=== PATIENT | male | born 1960 | race Caucasian/White ===

== ENCOUNTER 2017-10-05 10:23 | Emergency (ER) | payer OTHER ==
[~2017-10-05] VITALS: Ht 190.5 cm; Wt 86.2 kg
[2017-10-05] MEDS ORDERED: TRAZODONE HCL100 MG PO ×2 (10:55→11:19)
[2017-10-05] MEDS ORDERED: BENZTROPINE MESY2 MG PO ×2 (10:56→11:19)
[2017-10-05] MEDS ORDERED: RISPERIDONE1 MG PO ×2 (10:57→11:19)
[2017-10-05] MEDS ORDERED: RISPERIDONE4 MG PO ×2 (10:57→11:19)
[2017-10-05] MEDS ORDERED: ZOLOFT100 MG PO ×2 (10:58→11:19)
== END 2017-10-05 11:38 | disposition home or self-care (01) ==
LOC: ED 10:23
DX: Z76.0 Encounter for issue of repeat prescription (principal); F17.200 Nicotine dependence, unspecified, uncomplicated; Z88.6 Allergy status to analgesic agent
CPT/HCPCS: 99283

== ENCOUNTER 2017-11-11 10:44 | Emergency (ER) | payer OTHER ==
[~2017-11-11] VITALS: Ht 190.5 cm; Wt 86.2 kg
[~2017-11-11 10:44] MED LIST: BENZTROPINE MESY2 MG PO; RISPERIDONE1 MG PO; RISPERIDONE4 MG PO; TRAZODONE HCL100 MG PO; ZOLOFT100 MG PO
[2017-11-11] MEDS ORDERED: ZOLOFT100 MG PO (12:03)
== END 2017-11-11 12:15 | disposition home or self-care (01) ==
LOC: ED 10:44
DX: Z76.0 Encounter for issue of repeat prescription (principal); I10 Essential (primary) hypertension; F17.200 Nicotine dependence, unspecified, uncomplicated; Z88.6 Allergy status to analgesic agent; Z79.899 Other long term (current) drug therapy
CPT/HCPCS: 99281

== ENCOUNTER 2018-02-20 14:29 | Emergency (ER) | payer OTHER ==
[~2018-02-20] VITALS: Ht 190.5 cm; Wt 86.2 kg
[2018-02-20] MEDS ORDERED: NEURONTIN300 MG PO (14:59)
[2018-02-20] MEDS ORDERED: VENTOLIN HFA18 GM INH ×2 (15:00→15:45)
[2018-02-20] MEDS ORDERED: FLOVENT HFA12 G1 INH (15:01)
[2018-02-20] MEDS ORDERED: LEVAQUIN500 MG PO (15:45)
[2018-02-20] MEDS ORDERED: DELTASONE20 MG PO (15:45)
== END 2018-02-20 16:20 | disposition home or self-care (01) ==
LOC: ED 14:29
DX: J40 Bronchitis, not specified as acute or chronic (principal); J32.9 Chronic sinusitis, unspecified; I10 Essential (primary) hypertension; F32.9 Major depressive disorder, single episode, unspecified; F17.200 Nicotine dependence, unspecified, uncomplicated; Z88.8 Allergy status to other drugs, medicaments and biological substances; Z79.899 Other long term (current) drug therapy
CPT/HCPCS: 71045; 94640; 99284; J7512

== ENCOUNTER 2019-12-26 13:28 | Emergency (ER) | payer OTHER ==
[~2019-12-26] VITALS: Ht 190.5 cm; Wt 110.2 kg
[~2019-12-26 13:28] MED LIST changes: +DELTASONE20 MG PO; +FLOVENT HFA12 G1 INH; +LEVAQUIN500 MG PO; +NEURONTIN300 MG PO; +VENTOLIN HFA18 GM INH
--- OUTSIDE RECORDS SUMMARY | 2019-12-26 13:30 | XMS ---
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 Guidelines Source: [employer] [facility] [place] Guidelines Date: 10/10/2019 Care Coordination: Member is currently enrolled in Mental Health Services through [employer]. If services are needed through [employer] please call: Myron [phone] [place]; [phone] Crisis [phone] E.DSayda VISIT COUNT (12 MO.) 1 [facility] TOTAL 1 NOTE: Visits indicate total known visits. ED/UCC VISIT TRACKING (12 MO.) 12/26/2019 13:[address] [facility] [place] TYPE: Emergency COMPLAINT: - BACK PAIN INPATIENT VISIT TRACKING (12 MO.) No inpatient visits to display in this time frame [email or web address]
[2019-12-26] MEDS ORDERED: BUSPIRONE HCL5 MG PO (13:53)
[2019-12-26] MEDS ORDERED: CLARITIN10 M2 PO (13:53)
[2019-12-26] MEDS ORDERED: GABAPENTIN100 MG PO (13:58)
[2019-12-26] MEDS ORDERED: PREDNISONE20 MG PO (13:58)
[2019-12-26] MEDS ORDERED: LIDODERM1 EACH TD (13:58)
== END 2019-12-26 14:36 | disposition home or self-care (01) ==
LOC: ED 13:28
DX: M54.5 Low back pain (principal); I10 Essential (primary) hypertension; F32.9 Major depressive disorder, single episode, unspecified; F20.0 Paranoid schizophrenia; F17.200 Nicotine dependence, unspecified, uncomplicated; Z88.6 Allergy status to analgesic agent; Z79.899 Other long term (current) drug therapy
CPT/HCPCS: 96372; 99283; J1885

== ENCOUNTER 2019-12-31 18:57 | Emergency (ER) | payer OTHER ==
[~2019-12-31] VITALS: Ht 190.5 cm; Wt 110.2 kg
[~2019-12-31 18:57] MED LIST changes: +BUSPIRONE HCL5 MG PO; +CLARITIN10 M2 PO; +GABAPENTIN100 MG PO; +LIDODERM1 EACH TD; +PREDNISONE20 MG PO
--- OUTSIDE RECORDS SUMMARY | 2019-12-31 19:00 | XMS ---
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 Guidelines Source: [employer] [facility] [place] Guidelines Date: 10/10/2019 Care Coordination: Member is currently enrolled in Mental Health Services through [address]. If services are needed through [employer] please call: Myron [phone] [place]/[facility]; [phone] [facility] [phone] E.DSayda VISIT COUNT (12 MO.) 2 [facility]. TOTAL 2 NOTE: Visits indicate total known visits. ED/UCC VISIT TRACKING (12 MO.) 12/31/2019 18:57 [facility] [place] TYPE: Emergency COMPLAINT: - BACK PAIN 12/26/2019 13:29 [facility] [place] TYPE: Emergency COMPLAINT: - BACK PAIN DIAGNOSES: - Nicotine dependence, unspecified, uncomplicated - Allergy status to analgesic agent status - Other care home (current) drug therapy - Paranoid schizophrenia - Low back pain - Essential (primary) hypertension - Major depressive disorder, single episode, unspecified INPATIENT VISIT TRACKING (12 MO.) No inpatient visits to display in this time frame [email or web address]: [id number]
[2019-12-31] MEDS ORDERED: DICLOFENAC SODI75 MG PO (20:15)
--- NOTE | 2020-01-01 14:14 | EKG ---
[facility] [address] [place], [place] [address] Signed Normal sinus rhythm Normal ECG No previous ECGs available Confirmed by ODILON TREADWELL DO ([id number]) on 01/01/2020 2:13:58 PM Electronically Signed By: ODILON TREADWELL DO 01/01/20 1414 PATIENT NAME: ANSHULMARIAH FERREIRA Electrocardiogram DATE OF : 58 PHYSICIAN: ODILON TREADWELL DO REPORT #: [id number] REPORT IS CONFIDENTIAL AND NOT TO BE RELEASED WITHOUT AUTHORIZATION
== END 2019-12-31 20:35 | disposition home or self-care (01) ==
LOC: ED 18:57
DX: M54.5 Low back pain (principal); R55 Syncope and collapse; I10 Essential (primary) hypertension; F32.9 Major depressive disorder, single episode, unspecified; F17.200 Nicotine dependence, unspecified, uncomplicated; F20.0 Paranoid schizophrenia; Z88.6 Allergy status to analgesic agent; Z79.899 Other long term (current) drug therapy
CPT/HCPCS: 80053; 81001; 85025; 96361; 96374; 99284-25; G0480; J1885; J7030; J7121

== ENCOUNTER 2020-06-01 09:22 | Observation (INO) | payer OTHER ==
[~2020-06-01] VITALS: Ht 190.5 cm; Wt 87.4 kg
[~2020-06-01 09:22] MED LIST changes: -CLARITIN10 M2 PO; +CLARITIN10 MG PO; +DICLOFENAC SODI75 MG PO
--- OUTSIDE RECORDS SUMMARY | 2020-06-01 09:24 | XMS ---
PreManage Notification: MARIAH KUMAR Security Slip Laster Events No recent Security Events currently on file CRITERIA MET - [facility] - Has Care Guidelines CARE PROVIDERS There are no care providers on record at this time. Guidelines Source: [employer] [facility] [place] Guidelines Date: 10/10/2019 Care Coordination: Member is currently enrolled in Mental Health Services through [employer]. If services are needed through [employer] please call: Myron [phone] [place]; [phone] Crisis [phone] E.D. VISIT COUNT (12 MO.) 3 [facility]. TOTAL 3 NOTE: Visits indicate total known visits. ED/UCC VISIT TRACKING (12 MO.) 06/01/2020 09:22 [facility] TYPE: Emergency COMPLAINT: - L MIDDLE FINGER INJURY 12/31/2019 18:57 [facility] [place] TYPE: Emergency COMPLAINT: - BACK PAIN DIAGNOSES: - Low back pain - Major depressive disorder, single episode, unspecified - Paranoid schizophrenia - Syncope and collapse - Essential (primary) hypertension - Other senior living (current) drug therapy - Allergy status to analgesic agent - Nicotine dependence, unspecified, uncomplicated 12/26/2019 13:29 [facility]ir[facility]ills[facility]da [place] TYPE: Emergency COMPLAINT: - BACK PAIN DIAGNOSES: - Nicotine dependence, unspecified, uncomplicated - Allergy status to analgesic agent - Other senior living (current) drug therapy - Paranoid schizophrenia - Low back pain - Essential (primary) hypertension - Major depressive disorder, single episode, unspecified INPATIENT VISIT TRACKING (12 MO.) No inpatient visits to display in this time frame [email or web address]
[2020-06-01] MEDS ORDERED: VITAMIN D21250 MCG PO (16:36)
--- NOTE | 2020-06-01 17:43 | NUR ---
PT ADMITTED FROM ED. PT ON 2L OXYMASK, LUNG SOUNDS COARSE WITH EXPIRATORY WHEEZE. PT WITH POOR PERSONAL HYGEINE. BOWEL TONES ACTIVE, DENIES NAUSEA. CMSINTACT. PT WITH LEFT 3RD FINGER SPLINTED, BRUISING AND SWELLING. SKIN GROSSLY INTACT. IV SALINE LOCKED. ADMISSION INTAKE COMPLETED. PT ASSISTED TO ORDER DINNER. PT DENIES OTHER NEEDS AT THIS TIME.
--- NOTE | 2020-06-01 19:05 | NUR ---
REPORT RECEIVED FROM MIGUEL GEORGE, PATIENT RESTING IN BED, ALERT AND ORIENTED, ON 2L 02. DINNER TRAY REMOVED, CALL LIGHT IN REACH, NO OTHER NEEDS AT THIS TIME. WILL CONT TO MONITOR
--- NOTE | 2020-06-01 21:19 | NUR ---
SCHEDULED MEDICATIONS ADMINISTERED, PRN TYLENOL ADMINISTERED FOR 4/10 GENERALIZED "SORENESS". PT ON 2L VIA OXYMASK, SPO2 RANGING FROM 89-92%. LUNGS DIM, HRR, BOWEL TONES ACTIVE. CMS INTACT. L FINGERS SPLINTED, BRUISING NOTED. PT REPORTS MINIMAL PAIN IN HAND/FINGERS. WATER REFRESHED, ORIENTED TO ROOM, CALL LIGHT IN REACH. WILL CONT TO MONITOR
--- NOTE | 2020-06-01 22:30 | NUR ---
ROUNDED ON PATIENT, RESTING IN BED WITH LIGHTS OFF, EYES CLOSED. BREATHING EVEN AND UNLABORED. ON 2L OXYMASK. TELE IN PLACE. NO APPARENT NEEDS AT THIS TIME.
--- NOTE | 2020-06-02 00:12 | NUR ---
PT SPO2 NOTED TO BE READING 85%, PT FOUND TO HAVE REMOVED OXYMASK WHILE SLEEPING. REPLACED, SPO2 READING 94%. PT REPORTS NO SOB. WILL CONTINUE TO MONITOR.
--- NOTE | 2020-06-02 01:35 | NUR ---
TELE LEADS ADJUSTED, VITALS TAKEN, VSS. PT OXYMASK CONTINUES TO SLIP WHILE SLEEPING, O2 RANGING FROM 85%-100%, EDUCATED PT REGARDING PLACEMENT OF MASK AND IMPORTANCE OF USE. VERBALIZES UNDERSTANDING. ASSESSMENT COMPLETE, PT REPORTS NO SOB, NO TIGHTNESS OR PAIN IN CHEST, LUNG SOUNDS DIM, HRR. COMPLIANT WITH CARE BUT STATES ANXIOUS TO "GET SOME SLEEP". CALL LIGHT IN REACH.
--- NOTE | 2020-06-02 03:47 | NUR ---
ROUNDED ON PATIENT, RESTING IN BED WITH EYES CLOSED AND LIGHTS OFF. OXYMASK IN PLACE, SPO2 97%, HR 73. NO APPARENT NEEDS AT THIS TIME, WILL CONTINUE TO MONITOR.
--- NOTE | 2020-06-02 05:43 | NUR ---
MEDICATIONS ADMINSTERED, VITALS AND I/O'S COMPLETE. PT DUE TO VOID, STATES "DOES NOT GO AT NIGHT", ENCOURAGED TO TRY, REFUSED AT THIS TIME. 93% ON 2L OXYMASK, STATES NO SOB. CALL LIGHT IN REACH.
--- NOTE | 2020-06-02 06:15 | NUR ---
BRAND MGR ROUNDING NOTE. PT UP TO BATHROOM AND BACK TO BED WITH SBA. TOLERATED WELL. SAO2 TO MID 80'S WHILE UP TO BR ON RA. PT RECOVERS TO 90S WHEN O2 REPLACED @ 2L. PT DENIES FURTHER NEEDS AT THIS TIME. CALL LIGHT IN [facility]. WHITE BOARD UPDATED.
--- NOTE | 2020-06-02 06:55 | NUR ---
HANDOFF REPORT RECEIVED FROM FORESTRY FIRE AID RN.
--- NOTE | 2020-06-02 09:25 | NUR ---
PT RESTGING IN BED. PT COMPLETED WITH BREAKFAST, EXCELLENT APPETITE. PT ON 2L NC, LUNG SOUNDS COARSE WITH EXPIRAOTRY HWEEZE, PT STATES BREATHING IS AT BASELINE BOWEL TONES ACTIVE. CMS INTACT, WIHTOUT EDEMA. PT WITH LEFT THIRD FINGER SPLINTED, SWELLING AND BRUISING UNCHANGED FROM YESTERDAY. PT REQUESTING TO SHOWER, GRANULATOR TO ASSIST. PT DENIES OTHER NEEDS AT THIS TIME.
--- NOTE | 2020-06-02 11:14 | NUR ---
PATIENT TOOK A SHOWER. CHANGED BED LINENS. HE ORDERED HIS OWN LUNCH.
[2020-06-02] MEDS ORDERED: BUPROPION XL150 MG PO (11:30)
[2020-06-02] MEDS ORDERED: ACETAMINOPHEN500 M1 PO (11:31)
[2020-06-02] MEDS ORDERED: RISPERIDONE4 MG PO (11:32)
[2020-06-02] MEDS ORDERED: ZOLOFT100 MG PO (11:33)
[2020-06-02] MEDS ORDERED: TRAZODONE HCL100 MG PO (11:33)
[2020-06-02] MEDS ORDERED: BENZTROPINE MESY2 MG PO (11:34)
[2020-06-02] MEDS ORDERED: GABAPENTIN300 MG PO (11:35)
--- NOTE | 2020-06-02 14:15 | NUR ---
PT CONSENTED TO FLU VACCINE ADMINISTRATION, GIVEN TO LEFT DELTOID. PT ENCOURAGED TO WALK IN ROOM AND INCREASE ACTIVITY TOLERATED. NO ACUTE CHANGES. PT DENIES OTHER NEEDS AT THIS TIME.
--- NOTE | 2020-06-02 17:33 | NUR ---
PT HAD UNEVENTFUL DAY. PT REMAINED ON 2L NC, LUNG SOUNDS COARSE WITH OCCASIONAL WHEEZE, SCHEDULED NEBS. PT TOLERATING DIET, GOOD APPETITE. PT INDEPENDENT IN ROOM, ENCOURAGE AMBULATION. IV SALINE LOCKED. VSS. VOIDING QS.
--- NOTE | 2020-06-02 19:04 | NUR ---
REPORT RECEIVED FROM MIGUEL GEORGE, PATIENT RESTING IN BED, ON TELE #4, SPO2 92%, NO APPARENT NEEDS AT THIS TIME, WILL CONTINUE TO MONITOR.
--- NOTE | 2020-06-02 19:19 | NUR ---
REPORT RECEIVED FROM JORGE GEORGE, ARIEL RIVERA AND LEI PHAN IN ROOM TO ASSIST WITH BED CHANGE, PT INCONTINENT. PT RESTING IN BED,IVF INFUSING WNL, PT STATES NO NEEDS AT THIS TIME, CALL LIGHT IN REACH.
--- NOTE | 2020-06-02 21:05 | NUR ---
SCHEDULED MEDICATIONS ADMINISTERED, ASSESSMENT COMPLETE, PT RESTING IN BED ON 2L O2, SPO2 94%, PT REPORTS NO SOB BUT HAS FREQUENT PRODUCTIVE COUGH. I.S. AT BEDSIDE. LUNG SOUNDS CLEAR AT THIS TIME POST NEB TX. PRN TYLENOL ADMINISTERED FOR GENERALIZED ACHE, BACK PAIN AND FINGER PAIN. SALINE LOCKED. VSS, A+O. CALL LIGHT IN REACH, WILL CONTINUE TO MONITOR.
--- NOTE | 2020-06-02 23:47 | NUR ---
ROUNDED ON PATIENT, RESTING IN BED WITH EYES CLOSED, LIGHTS OFF, BREATHING UNLABORED ON 2L NC, SPO2 95%. NO APPARENT NEEDS, WILL CONTINUE TO MONITOR
--- NOTE | 2020-06-03 01:30 | NUR ---
ROUNDED ON PATIENT, RESTING IN BED WITH EYES CLOSED, BREATHING EVEN AND UNLABORED. NO APPARENT NEEDS AT THIS TIME, WILL CONTINUE TO MONITOR.
--- NOTE | 2020-06-03 04:15 | NUR ---
ROUNDED ON PATIENT, RESTING IN BED WITH EYES CLOSED, BREATHING EVEN AND UNLABORED. NO APPARENT NEEDS, CALL LIGHT IN REACH.
--- NOTE | 2020-06-03 05:13 | NUR ---
MEDICATIONS ADMINISTERED, ASSESSMENT COMPLETE, VITALS AND I/O'S COMPLETE. VSS, A+O, SALINE LOCKED. ON 2L NC, PT STATES EXPERIENCING DRY NARES FROM O2, OTHERWISE NO PAIN, DISCOMFORT OR NEEDS. WATER REFRESHED, CALL LIGHT IN REACH.
--- NOTE | 2020-06-03 06:55 | NUR ---
HANDOFF REPORT RECEIVED FROM FOOD SERVICE ASSISTANT RN.
--- NOTE | 2020-06-03 07:35 | NUR ---
PT RESTING IN BED. PT ON 2L NC, LUNG SOUNDS COARSE WITH EXPIRATORY WHEEZE THROUGHOUT. PT DENIES NAUSEA, BOWEL TONES ACTIVE. PT WITH LEFT THIRD FINGER SPLINTED, BRUISING AND SWELLING UNCHANGED FROM YESTERDAY. CMS INTACT, WITHOUT LLE. PT INDEPENDENT IN ROOM, VOIDING QS. DISCUSSED PLAN OF CARE FOR THE DAY. PT DENIES OTHER NEEDS AT THIS TIME.
--- NOTE | 2020-06-03 13:56 | NUR ---
PHONE CALL TO [facility] TO SEE IF HIS LAST CASE-MANGER COULD HELP WITH THE DISCHARGE TO A SAFE PLACE. THIS IS DUE TO PT WILL BE NEEDING HOME O2 AND PT CURRENTLY LIVES IN A TRAVEL TRAILER AT THE [facility] ON [address].
--- NOTE | 2020-06-03 14:15 | NUR ---
PT RESTING IN BED. PT LUNG SOUNDS COARSE, LOOSE COUGH. IV SLAIEN LOCKED, FLUSHED, SOLUMEDROL GIVEN. PT WAITING FOR BROTHER TO ARRIVE WITH FRESH CLOTHES BEFORE SHOWERING. NO ACUTE CHANGES. PT DENIES OTHER NEEDS AT THIS TIME.
--- NOTE | 2020-06-03 18:06 | NUR ---
PT HAD UNEVENTFUL DAY. PT WEANED TO 2L NC, RECEIVED SCHEDULED NEBS. PT SHOWERED, INDEPENDENT IN ROOM. [employer] CONTACTED TO ASSIST WITH DISCHARGE PLANNING. LEFT HAND WITH 3RD FINGER SPLINTED, BRUSINING AND SWELLING. PT VOIDING QS.
--- NOTE | 2020-06-03 19:05 | NUR ---
REPORT RECEIVED FROM MIGUEL EGORGE. PATIENT SITTING UP IN BED WATCHING TV, 2L 02 NC, TELE IN PLACE, A+O, STATES NO NEEDS AT THIS TIME.
--- NOTE | 2020-06-03 20:58 | NUR ---
MEDICATIONS ADMINISTERED, PT RESTING IN BED WATCHING TV. SALINE LOCKED. 2L NC 02, TOLERATING WELL. PT REPORTS 4/10 PAIN, PRN TYLENOL ADMINISTERED. LUNGS COARSE IN BASES, PT REPORTS "BREATHING BETTER" AFTER NEB TX. WATER REFRESHED, NO OTHER NEEDS AT THIS TIME.
--- NOTE | 2020-06-03 23:15 | NUR ---
ROUNDED ON PATIENT, RESTING IN BED WATCHING TV. STATES NO NEEDS AT THIS TIME, CALL LIGHT IN REACH.
--- NOTE | 2020-06-04 03:00 | NUR ---
ROUNDED ON PATIENT, RESTING IN BED WITH EYES CLOSED, 2L NC IN PLACE, TOLERATING WELL SPO2 94%. BREATHING EVEN AND UNLABORED. CALL LIGHT IN REACH, WILL CONTINUE TO MONITOR
--- NOTE | 2020-06-04 05:35 | NUR ---
MEDICATIONS ADMINISTERED, PT UP TO BR TO VOID. WATER REFRESHED, CALL LIGHT IN REACH, NO OTHER NEEDS AT THIS TIME.
--- NOTE | 2020-06-04 07:49 | NUR ---
REPORT RECEIVED. PT IN BED IWTH EYES CLOSED. TELE#[address] HR 71 SPO2 94% ON 2L NC. RESPIRATIONS EQUAL AND NONLABORED. CALL LIGHT IN REACH.
--- NOTE | 2020-06-04 10:01 | NUR ---
ASSESSMENT COMPLETED. PT ON 2L NC, LUNGS COARSE THROUGHOUT. PT DENIES PAIN AT THIS TIME. SITTING UP IN BED ALERT AND ORIENTED. DENIES SOB. CALL LIGHT IN REACH
--- NOTE | 2020-06-04 11:20 | NUR ---
SPOKE WITH [facility]. PATIENT HAS BEEN DISCHARGED FROM THEIR ACT TEAM. HIS LAST MEDICATION MANAGEMENT APPOINTMENT WAS IN APRIL. HE IS DISCHARGED FROM COUNSELING FOR NO SHOWING FOR MULTIPLE APPOINTMENTS. PATIENT CAN CALL AND SET UP NEW APPOINTMENTS IF HE WISHES. THEY DO NOT HAVE ANY NOTES FROM ANYONE ON THE WEEKEND IN HIS CHART. STAFF UPDATED.
--- NOTE | 2020-06-04 12:00 | NUR ---
PT SITTING UP FOR LUNCH. DENEIS PAIN AT THIS TIME. CALL LIGHT IN REACH. 2L NC IN PLACE.
--- NOTE | 2020-06-04 13:07 | NUR ---
PT O2 SAT 94 ON 1LNC
--- NOTE | 2020-06-04 14:45 | NUR ---
RESPITORY THERAPY IN TO QUALIFY FOR HOME O2.
--- NOTE | 2020-06-04 16:17 | NUR ---
RT IN ROOM DOING TREATMENT. CANNOT ENTER AT THIS TIME.
[2020-06-04] MEDS ORDERED: FLOVENT HFA12 GM INH (16:43)
--- NOTE | 2020-06-04 19:15 | NUR ---
SHIFT REPORT RECEIVED FROM DAYSHIFT ARIEL CHAU AT BEDSIDE. pt AWAKE AND RESTING IN BED, 2LNC IN PLACE. REPORTS FEELING SWEATY, TEMP TAKEN BY ARIEL CHAU. RESULT 98.4. NO NEEDS, CALL LIGHT IN REACH.
--- NOTE | 2020-06-04 20:15 | NUR ---
ASSESSMENT COMPLETE, SCHEDULED MEDS GIVEN (SEE EMAR). pt REPORTS TOLERABLE PAIN AT THIS TIME, DENIES NAUSEA. VSS, TELE#[address], SINUS RHYTHM. pt DENIES SOB AND CHEST PAIN. 2LNC IN PLACE. pt DENIES FURTHER NEEDS, CALL LIGHT IN REACH.
--- NOTE | 2020-06-04 22:45 | NUR ---
SCHEDULED SOLU-MEDROL GIVEN (SEE EMAR). IV SITE WNL. URINAL ALSO EMPTIED, 900MLS OUTPUT. NO ADDITIONAL NEEDS, CALL LIGHT IN REACH.
--- NOTE | 2020-06-05 00:41 | NUR ---
pt RESTING IN BED WITH EYES CLOSED, RR EVEN AND UNLABORED. TELE#[address], 2LNC IN PLACE. SPO2 100%, HR 60'S. NO DISTRESS NOTED, CALL LIGHT IN REACH.
--- NOTE | 2020-06-05 02:48 | NUR ---
pt RESTING QUIETLY IN BED WITH EYES CLOSED, RR EVEN AND UNLABORED. 2LNC IN PLACE, O2 SAT 96%. TELE6, SINUS RHYTHM WITH HR IN THE 60'S. CALL LIGHT IN REACH.
--- NOTE | 2020-06-05 03:49 | NUR ---
pt RESTING QUIETLY IN BED WITH EYES CLOSED, RESPIRATIONS EVEN AND UNLABORED. O2 SAT WNL. NO DISTRESS OR SIGNS OF PAIN NOTED. CALL LIGHT IN REACH.
--- NOTE | 2020-06-05 06:30 | NUR ---
vs and i&o's complete, pt remains on 2lnc. exp. wheezes noted, pt denies sob. reports tolerable 4/10 pain in left hand, denies need for pain medication. denies nausea. iv site wnl. pt independent in the room. call light in reach.
--- NOTE | 2020-06-05 06:47 | NUR ---
WRITTEN EDUCATION ALSO PROVIDED ON CONSTIPATION AT THIS TIME.
--- NOTE | 2020-06-05 07:20 | NUR ---
REPORT ERCEIVED. PT IN BED WITH EYES CLOSED. RESPIRAITONS EQUAL AND NONLABORED. TELE#[address] 99% ON 2L NC. TITRATED TO RA. SPO2 NOW 95%. HR 64. CALL LIGHT IN REACH.
--- NOTE | 2020-06-05 08:55 | NUR ---
TITRATED BACK TO 2L NC D/T PT AT 89% AT REST ON RA
--- NOTE | 2020-06-05 09:30 | NUR ---
Spoke with Vasyl. He plans on dc today. Qualified for 02 awaiting notes to send to [facility] for o2 set up. Pt states concern to use 02 in his RV as he was told he could not dc to home (RV) as he has propane. I let him know this is absolutely not correct. Many patients live in RVs, Trailers, and house with propane or natural gas. Understanding stated.
--- NOTE | 2020-06-05 09:44 | NUR ---
ASSESSMENT COMPLETED. LUNGS COARSE. PT ATE 100% OF BREAKFAST. REPORTS MINIMAL PAIN IN LEFT HAND AND LOWER BACK DENYING NEED FOR MEDICAITONS. 2L NC IN PLACE. SPO2 AT 94%. DENEIS NEEDS. CALL LIGHT IN REACH.
[2020-06-05] MEDS ORDERED: LORATADINE10 MG PO (09:50)
[2020-06-05] MEDS ORDERED: ZOLOFT100 MG PO (09:52)
[2020-06-05] MEDS ORDERED: TRAZODONE HCL100 MG PO (09:52)
[2020-06-05] MEDS ORDERED: BUPROPION XL150 MG PO (09:52)
[2020-06-05] MEDS ORDERED: RISPERIDONE0.25 MG PO (09:53)
[2020-06-05] MEDS ORDERED: RISPERIDONE2 MG PO (09:53)
[2020-06-05] MEDS ORDERED: BENZTROPINE MESY2 MG PO (09:55)
[2020-06-05] MEDS ORDERED: PREDNISONE10 MG PO (09:56)
[2020-06-05] MEDS ORDERED: ATROVENT HFA12.9 GM INH (09:57)
--- NOTE | 2020-06-05 10:38 | NUR ---
ROUNDED ON PT. DC'D IV FOR DISCHARGE. TELE DC'D. PT UP GETTING DRESSED INDEPENDENTLY NOW.
--- NOTE | 2020-06-05 11:44 | NUR ---
NOtes, 02 qualifier, face sheet, faxed to [facility]. Updated pt may have concerns for 02 in RV. Spoke with Mandeep and she will reassure pt.
--- NOTE | 2020-06-05 12:02 | NUR ---
DISCHARGE INSTRUCTIONS PROVIDED. IV DC'D AND WNL.
--- NOTE | 2020-06-05 14:00 | NUR ---
ROUNDED ON PT TO UPDATE ON OXYGEN SITUATION. PT REPORTING HE WILL BE LEAVING AT 4 WITH OR WITHOUR OXYGEN HE HAS TO WALK HIS DOG BEFORE DRARK. ENCOURAGED PT TO STAY AND UPDATED FLAQUITO IN CAS[facility]EMENT. FLAQUITO WORKING ON GETTING OXYGEN APPROVED SOON POSSIBLE.
--- NOTE | 2020-06-05 14:00 | NUR ---
Call from [facility], they are awaiting auth from Medicaid. Pt may need to pay some money upfront. Room number given for [facility] to call into the room if needed.
--- NOTE | 2020-06-05 14:50 | NUR ---
Notified pt is threatening to leave at 4 with or without 02. In and spoke with pt, notified [facility] is attempting get authoriziation for payment for his 02. Notified this is not a fast process. Asked if he would be willing to stay as M is trying to get auth at this time. Pt agrees to stay. He is very concerned about his little dog and wanting to go home. I suggested a girlfriend bring the dog in for a visit.
--- NOTE | 2020-06-05 16:40 | NUR ---
Notified by [facility] they have made numerous attempts to contact [facility] for auth of oxygen. They last call, they were notified the office had closed. I will update pt and request he spend the nigth as it is dangerous for him to go home without 02. Spoke with pt and he is willing to stay tonight. Rn notified.
--- NOTE | 2020-06-05 18:19 | NUR ---
ROUNDED ON PT. ATE 100% OF DINNER. PT MISSED 2 BREATHING TREAMENTS D/T PENDING DISCHARGE. REQUESTED RESPITORY THERPY FOR NEB TREATMENT.
--- NOTE | 2020-06-05 18:29 | NUR ---
PATIENT IN BED WATCHING TV. RT IN ROOM NOW TO DO BREATHING TREATMENT. CALL LIGHT IN REACH. NO FURTHER NEEDS AT THIS TIME.
--- NOTE | 2020-06-05 19:20 | NUR ---
SHIFT REPORT RECEIVED FROM DAYSHIFT ARIEL CHAU AT THIS TIME, pt RESTING IN BED. 2LNC IN PLACE, RR EVEN AND UNLABORED. CALL LIGHT IN REACH.
--- NOTE | 2020-06-05 19:25 | NUR ---
pt BACK TO BED FROM BATHROOM. LARGE BM NOTED, SPRAYED WALL AND FLOOR. STAGE 2 PRESSURE SORES NOTED BILATERALLY INTERNAL GLUTEAL CLEFTS. CONSENT FOR PHOTOS CONFIRMED AND PICTURES PLACED IN CHART. AREA CLEANED AND ALLEVYN PLACED. DR. DOMINIQUE SHOWN IMAGES AND DISCUSSED PLAN TO TURN PATIENT Q2H, ALLEVYN IN PLACE. NO NEW ORDERS.
--- NOTE | 2020-06-05 19:33 | NUR ---
DR BERGERON CALLED TO VERIFY NEED FOR SOLU-MED PT DOES NOT HAVE IV ACCESS. ORDER TO DC SOLU-MED AND ORDER PREDNISONE 40MG PO ONCE AT 0900 TOMORROW. READ BACK TO VERIFY.
--- NOTE | 2020-06-05 22:00 | NUR ---
ASSESSMENT COMPLETE, SCHEDULED MEDS GIVEN (SEE EMAR). 0.5MG RISPERIDONE UNAVAILABLE. pt WAS PLANNING ON BEING DISCHARGED TODAY. DISCUSSED WITH JENNIFER FROM TELEPHARM[facility]Y, PER JENNIFER, OKAY TO CUT 2MG RISPERIDONE TAB INTO QUARTERS. VSS, pt ON 2LNC. DENIES SOB AND CHEST PAIN. DENIES NAUSEA, BUT REPORTS ABD PAIN D/T CONSTIPATION. DISCUSSED WITH PERL DEVELOPERDEEPTHI ROTHMAN FOR MAG CITRATE PLACED. DISCUSSED INTERACTIONS WITH JENNIFER FROM TELEPHARM[facility]Y, PER JENNIFER, GIVE 1 HOUR BEFORE OR 2 HOURS AFTER LEVAQUIN AND GABAPENTIN TO MAXIMIZE ABSORPTION. N ISSUES WITH MEDS, CALL LIGHT IN REACH.
--- NOTE | 2020-06-06 00:05 | NUR ---
SCHEDULED MAG CITRATE GIVEN IN 8 OUNCES OF WATER, TO HELP WITH ABD PAIN R/T CONSTIPATION. WILL MONITOR, NO ADDITIONAL NEEDS, CALL LIGHT IN REACH.
--- NOTE | 2020-06-06 01:49 | NUR ---
pt RESTING IN BED WITH EYES CLOSED, RR EVEN AND UNLABORED. 2LNC REMAIN IN PLACE. URINAL EMPTIED AT THIS TIME, 875MLS STRAW COLORED URINE NOTED. CALL LIGHT IN REACH.
--- NOTE | 2020-06-06 02:28 | NUR ---
DR BERGERON AT [facility] UPDATED ON ADDITION TO NIO MAG CITRATE. NO NEW ORDERS. PER DR BERGERON, THIS IS A CHRONIC ISSUE FOR pt AND pt DOES NOT HAVE TO HAVE A BM TO BE DISCHARGED. pt IS STILL PLANNED TO BE DISCHARGED TODAY ON DAYSHIFT.
--- NOTE | 2020-06-06 03:00 | NUR ---
pt RESTING IN BED WITH EYES CLOSED, RR REMAINS EVEN AND UNLABORED. NO DISTRESS NOTED. 2LNC REMAIN IN PLACE. CALL LIGHT IN REACH.
--- NOTE | 2020-06-06 06:31 | NUR ---
ASSESSMENT COMPLETE, NO NEW CHANGES OR CONCERNS. pt RESTING IN BED AND AWAKE. pt DID NOT DRINK ANY OF THE MAG CITRATE, MAG CITRATE REMOVED AT 0530 D/T SCHEDULED LEVAQUIN (SEE EMAR). SCHEDULED PO ABX GIVEN. CMS INTACT, SPLINT TO LEFT FINGERS REMAINS IN PLACE. CAP REFILL WNL, STRONG BILATERAL PEDAL AND RADIAL PULSES NOTED. FRESH WATER AT BEDSIDE. NO FURTHER NEEDS, CALL LIGHT IN REACH.
--- NOTE | 2020-06-06 09:01 | NUR ---
Patient resting in bed, a&ox4. Patient has no distress at this time, respirations are even and non labored. Patient is currently on 2L oxygen per nc. Patient reports he feels ready for discharge. No needs at this time.
--- NOTE | 2020-06-06 09:43 | NUR ---
SPOKE WITH TOMMY FROM [facility] TO CHECK IF THEY RECEIVED AUTH FOR HOME OXYGEN YET. DISCUSSED WE NEED TO DISCHARGE TODAY. SHE STATES SHE IS JUST GETTTING READY TO CALL THEM. ASKED IF SHE COULD LET US KNOW SOON POSSIBLE WHEN CLEAR TO GO.
--- NOTE | 2020-06-06 10:30 | NUR ---
Notified by [facility] auth for o2 has been received. [employer] will pay 100%. Pt will go home with a portable 02 and will need to call them when home. They will deliver 02. Updated pt and gave them [facility] phone number. Also reminded he must see his pcp and requalify for 02 before 30 days. He will see Kingsley Brown in 2 weeks.
[2020-06-06] MEDS ORDERED: NICOTINE GUM2 MG MM (10:34)
--- NOTE | 2020-06-06 11:20 | NUR ---
Nicorette gum x1 provided prior to discharge.
--- NOTE | 2020-06-06 13:48 | NUR ---
PT ALERT, LAYING IN BED WATCHING TV. HAD FRIENDLY VISIT WITH PT, SEEMED TO BE ENGAGED IN CONVERSATION. HOPES TO DC LATER TODAY. WILL GO ON O2, NEEDS PORTABLE O2 TO ACCOMODATE HIS WORK AND LIFESTYLE. PT HAS GLOVE ON HAND-SAID HE HAS BROKEN FINGER THAT IS SUPPOSED TO GET "FIXED". PT FEELS WELL CARED FOR. GAVE BLESSING WILL CONTINUE TO FOLLOW
--- NOTE | 2020-06-07 14:07 | NUR ---
Rx for Nicotine gum 2mg 1 q 1 hr as needed for cigarette craving called to [facility]. [phone]. Spoke with pharmacist Jennifer.
== END 2020-06-06 11:25 | disposition home or self-care (01) ==
LOC: ED 09:22 → MS 09:23
PROVIDERS: ADMIT Internal Medicine; ATTEND Internal Medicine
DX: S62.613A Displaced fracture of proximal phalanx of left middle finger, initial encounter for closed fracture (principal); J44.1 Chronic obstructive pulmonary disease with (acute) exacerbation; R09.02 Hypoxemia; I10 Essential (primary) hypertension; G89.29 Other chronic pain; M54.9 Dorsalgia, unspecified; F32.9 Major depressive disorder, single episode, unspecified; F20.0 Paranoid schizophrenia; F17.210 Nicotine dependence, cigarettes, uncomplicated; W01.0XXA Fall on same level from slipping, tripping and stumbling without subsequent striking against object, initial encounter; Y92.028 Other place in mobile home as the place of occurrence of the external cause; Z88.6 Allergy status to analgesic agent; Z99.81 Dependence on supplemental oxygen; Z79.51 Long term (current) use of inhaled steroids; Z20.822 Contact with and (suspected) exposure to COVID-19
CPT/HCPCS: 36415; 71045; 71260; 73110; 73130; 80048; 80053; 83735; 84484; 85025; 85379; 90686; 94640; 94760; 94761; 96372; 96375; 96376; 99285-25; 99406; C9803; G0008; G0378; J1100; J1885; J2920; J7512; Q9967; U0003

== ENCOUNTER 2021-09-22 10:49 | Inpatient (IN) | payer OTHER ==
[~2021-09-22] VITALS: Ht 190.5 cm; Wt 94.0 kg
[~2021-09-22 10:49] MED LIST changes: +ACETAMINOPHEN500 M1 PO; +ATROVENT HFA12.9 GM INH; +BUPROPION XL150 MG PO; +FLOVENT HFA12 GM INH; +GABAPENTIN300 MG PO; +LORATADINE10 MG PO; +NICOTINE GUM2 MG MM; +PREDNISONE10 MG PO; +RISPERIDONE0.25 MG PO; +RISPERIDONE2 MG PO; +VITAMIN D21250 MCG PO
--- OUTSIDE RECORDS SUMMARY | 2021-09-22 10:52 | XMS ---
PreManage Notification: MARIAH KUMAR Security Slurry Worker Events No recent Security Events currently on file CRITERIA MET - PDMP CARE PROVIDERS JENN SAMANIEGO Physician Events Intern 06/05/2020-Current PHONE: [phone] Care Guidelines exist for the following facilities: [facility] ( 10/10/2019 ) Johnny VISIT COUNT (12 MO.) 1 MARIANELA Pagan TOTAL 1 NOTE: Visits indicate total known visits. ED/UCC VISIT TRACKING (12 MO.) 09/22/2021 10:50 MARIANELA [facility] [place] TYPE: Emergency COMPLAINT: - FLU SYMPTOMS INPATIENT VISIT TRACKING (12 MO.) No inpatient visits to display in this time frame [email or web address]
[2021-09-23] MEDS ORDERED: VENTOLIN HFA18 GM INH (10:18)
[2021-09-23] MEDS ORDERED: IPRAT-ALBUT 0.5-3 ML INH (10:19)
[2021-09-23] MEDS ORDERED: STOOL SOFTENER1 EACH PO (10:20)
[2021-09-23] MEDS ORDERED: TRELEGY ELLIPT1 EAC1 INH (10:21)
[2021-09-23] MEDS ORDERED: BENZTROPINE MESY1 MG PO (10:25)
[2021-09-23] MEDS ORDERED: MONTELUKAST SOD10 MG PO (10:26)
[2021-09-23] MEDS ORDERED: VITAMIN D21250 MCG PO (10:27)
[2021-09-23] MEDS ORDERED: ARIPIPRAZOLE10 MG PO (10:28)
[2021-09-23] MEDS ORDERED: FLUTICASONE PRO16 GM NAS (10:30)
[2021-09-23] MEDS ORDERED: DULOXETINE HCL30 MG PO (10:30)
[2021-09-23] MEDS ORDERED: RISPERIDONE4 MG PO (10:45)
[2021-09-23] MEDS ORDERED: TRAZODONE HCL100 MG PO (10:45)
[2021-09-24] MEDS ORDERED: DOXYCYCLINE HY100 MG PO (13:32)
[2021-09-24] MEDS ORDERED: PREDNISONE50 MG PO (13:34)
== END 2021-09-24 14:55 | disposition home or self-care (01) | DRG 189 ==
LOC: ED 10:49 → MS 15:54
PROVIDERS: ADMIT Internal Medicine; ATTEND Internal Medicine
DX: J96.01 Acute respiratory failure with hypoxia (principal); J44.1 Chronic obstructive pulmonary disease with (acute) exacerbation; F20.0 Paranoid schizophrenia; Z20.822 Contact with and (suspected) exposure to COVID-19; M54.2 Cervicalgia; G89.4 Chronic pain syndrome; I10 Essential (primary) hypertension; F32.A Depression, unspecified; M54.9 Dorsalgia, unspecified; F17.210 Nicotine dependence, cigarettes, uncomplicated; Z90.49 Acquired absence of other specified parts of digestive tract; Z98.890 Other specified postprocedural states; Z88.6 Allergy status to analgesic agent; Z79.899 Other long term (current) drug therapy
CPT/HCPCS: 36415; 71045; 80048; 82803; 85025; 94640; 94667; 94668; 94760; 94761; 96374; 99285-25; A9270; C9803; J1650; J2930; U0003

== ENCOUNTER 2021-11-29 10:06 | Emergency (ER) | payer OTHER ==
[~2021-11-29] VITALS: Ht 190.5 cm; Wt 93.9 kg
[~2021-11-29 10:06] MED LIST changes: +ARIPIPRAZOLE10 MG PO; +BENZTROPINE MESY1 MG PO; +DOXYCYCLINE HY100 MG PO; +DULOXETINE HCL30 MG PO; +FLUTICASONE PRO16 GM NAS; +IPRAT-ALBUT 0.5-3 ML INH; +MONTELUKAST SOD10 MG PO; +PREDNISONE50 MG PO; +STOOL SOFTENER1 EACH PO; +TRELEGY ELLIPT1 EAC1 INH
--- OUTSIDE RECORDS SUMMARY | 2021-11-29 10:12 | XMS ---
PreManage Notification: MARIAH KUMAR Security Epic Kaleidoscope Analyst Events No recent Security Events currently on file CRITERIA MET - PDMP CARE PROVIDERS JENN SAMANIEGO Physician Football Scout 06/05/2020-Current PHONE: [phone] Care Guidelines exist for the following facilities: [facility] ( 10/10/2019 ) Johnny VISIT COUNT (12 MO.) 2 [facility]ELA P[facility] TOTAL 2 NOTE: Visits indicate total known visits. ED/UCC VISIT TRACKING (12 MO.) 11/29/2021 10:10 [facility] TYPE: Emergency COMPLAINT: - NECK PAIN 09/22/2021 10:50 [facility] TYPE: Emergency COMPLAINT: - FLU SYMPTOMS INPATIENT VISIT TRACKING (12 MO.) 09/22/2021 15:[address] [facility] TYPE: Medical Surgical COMPLAINT: - ACUTE EXACERBATION OF COPD DIAGNOSES: - Paranoid schizophrenia - Contact with and (suspected) exposure to COVID-19 - Nicotine dependence, cigarettes, uncomplicated - Other intermediate manager (current) drug therapy - Depression, unspecified - Essential (primary) hypertension - Acute respiratory failure with hypoxia - Acquired absence of other specified parts of digestive tract - Dorsalgia, unspecified - Allergy status to analgesic agent - Other specified postprocedural states - Chronic obstructive pulmonary disease with (acute) exacerbation - Chronic pain syndrome - Cervicalgia [email or web address]
[2021-11-29] MEDS ORDERED: HYDROCODON-ACE1 EA11 PO (11:56)
== END 2021-11-29 12:16 | disposition home or self-care (01) ==
LOC: ED 10:06
DX: M54.2 Cervicalgia (principal); I10 Essential (primary) hypertension; F17.200 Nicotine dependence, unspecified, uncomplicated; Z88.6 Allergy status to analgesic agent; Z79.899 Other long term (current) drug therapy; Z79.52 Long term (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 steroids
CPT/HCPCS: 96372; 99283; J1885

== ENCOUNTER 2021-12-30 09:43 | Emergency (ER) | payer OTHER ==
[~2021-12-30] VITALS: Ht 190.5 cm; Wt 93.9 kg
[~2021-12-30 09:43] MED LIST changes: +HYDROCODON-ACE1 EA11 PO
--- OUTSIDE RECORDS SUMMARY | 2021-12-30 09:46 | XMS ---
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 ED/UCC VISIT TRACKING (12 MO.) 12/30/2021 09:44 [facility] TYPE: Emergency COMPLAINT: - FLU SYMPTOMS 11/29/2021 10:10 [facility] TYPE: Emergency COMPLAINT: - NECK PAIN DIAGNOSES: - Nicotine dependence, unspecified, uncomplicated - Allergy status to analgesic agent - Other terminal manager (current) drug therapy - Cervicalgia - Essential (primary) hypertension - shelter (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 steroids 09/22/2021 10:50 [facility] [place] TYPE: Emergency COMPLAINT: - FLU SYMPTOMS INPATIENT VISIT TRACKING (12 MO.) 09/22/2021 15:54 [facility] TYPE: Medical Surgical COMPLAINT: - ACUTE EXACERBATION OF COPD DIAGNOSES: - Paranoid schizophrenia - Contact with and (suspected) exposure to COVID-19 - Nicotine dependence, cigarettes, uncomplicated - Other terminal manager (current) drug therapy - Depression, unspecified - Essential (primary) hypertension - Acute respiratory failure with hypoxia - Acquired absence of other specified parts of digestive tract - Dorsalgia, unspecified - Allergy status to analgesic agent - Other specified postprocedural states - Chronic obstructive pulmonary disease with (acute) exacerbation - Chronic pain syndrome - Cervicalgia [email or web address]
[2021-12-30] MEDS ORDERED: PREDNISONE20 MG PO (10:08)
== END 2021-12-30 10:37 | disposition home or self-care (01) ==
LOC: ED 09:43
DX: U07.1 COVID-19 (principal); J44.1 Chronic obstructive pulmonary disease with (acute) exacerbation; I10 Essential (primary) hypertension; F17.200 Nicotine dependence, unspecified, uncomplicated; Z88.6 Allergy status to analgesic agent; Z79.899 Other long term (current) drug therapy; Z79.52 Long term (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 steroids
CPT/HCPCS: J7512

== ENCOUNTER 2022-01-15 08:09 | Emergency (ER) | payer OTHER ==
[~2022-01-15] VITALS: Ht 190.5 cm; Wt 93.9 kg
--- OUTSIDE RECORDS SUMMARY | 2022-01-15 08:12 | XMS ---
PreManage Notification: MARIAH KUMAR Security Adjunct Professor Events No recent Security Events currently on file CRITERIA MET - [facility] - 2 Visits in 30 Days CARE PROVIDERS JENN SAMANIEGO Physician Core Filer 06/05/2020-Current PHONE: [phone] Care Guidelines exist for the following facilities: [facility] ( 10/10/2019 ) Johnny VISIT COUNT (12 MO.) [address] [place] [address] TOTAL 4 NOTE: Visits indicate total known visits. ED/UCC VISIT TRACKING (12 MO.) 01/15/2022 08:09 [facility] TYPE: Emergency COMPLAINT: - CONSTIPATION 12/30/2021 09:44 [facility] TYPE: Emergency COMPLAINT: - FLU SYMPTOMS DIAGNOSES: - Essential (primary) hypertension - Other [facility] (current) drug therapy - Nicotine dependence, unspecified, uncomplicated - [facility] (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 steroids - COVID-19 - Allergy status to analgesic agent - Chronic obstructive pulmonary disease with (acute) exacerbation - Cough, unspecified 11/29/2021 10:10 [facility] TYPE: Emergency COMPLAINT: - NECK PAIN DIAGNOSES: - Allergy status to analgesic agent - Essential (primary) hypertension - Other [facility] (current) drug therapy - Nicotine dependence, unspecified, uncomplicated - terminal block 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 (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 steroids - Cervicalgia 09/22/2021 10:50 [facility] TYPE: Emergency COMPLAINT: - FLU SYMPTOMS INPATIENT VISIT TRACKING (12 MO.) 09/22/2021 15:54 [facility] TYPE: Medical Surgical COMPLAINT: - ACUTE EXACERBATION OF COPD DIAGNOSES: - Contact with and (suspected) exposure to COVID-19 - Dorsalgia, unspecified - Acute respiratory failure with hypoxia - Cervicalgia - Depression, unspecified - Chronic obstructive pulmonary disease with (acute) exacerbation - Nicotine dependence, cigarettes, uncomplicated - Allergy status to analgesic agent - Paranoid schizophrenia - Acquired absence of other specified parts of digestive tract - Essential (primary) hypertension - Chronic pain syndrome - Other [facility] (current) drug therapy - Other specified postprocedural states [email or web address]
[2022-01-15] MEDS ORDERED: [UNRECOGNIZED DRUG - OTHER] (08:18)
[2022-01-15] MEDS ORDERED: ACYCLOVIR800 MG PO (08:18)
== END 2022-01-15 11:36 | disposition home or self-care (01) ==
LOC: ED 08:09
DX: K59.00 Constipation, unspecified (principal); I10 Essential (primary) hypertension; J44.9 Chronic obstructive pulmonary disease, unspecified; F17.200 Nicotine dependence, unspecified, uncomplicated; Z88.6 Allergy status to analgesic agent; Z79.899 Other long term (current) drug therapy
CPT/HCPCS: 36415; 74177; 80053; 81001; 83690; 85025; 99284-25; 99406; J2405; J7030

== ENCOUNTER 2024-02-11 19:47 | Emergency (ER) | payer OTHER ==
[~2024-02-11] VITALS: Ht 190.5 cm; Wt 82.0 kg
[~2024-02-11 19:47] MED LIST changes: +ACYCLOVIR800 MG PO; +AMOX TR-K CLV1 EAC1 PO; +FLOMAX0.4 MG PO; +HYDROXYZINE HCL25 MG PO; +MIRALAX119 GM PO; +[UNRECOGNIZED DRUG - OTHER]
[2024-02-11] MEDS ORDERED: ALBUTEROL/IPRATROPIUM 3 ML NEB INH ONE (20:00)
[2024-02-11] MEDS ORDERED: methylPREDNISolone SOD SUCC 125 MG/2 ML VIAL IV ONE (20:00)
[2024-02-11] MEDS ORDERED: ATROVENT HFA12.9 GM INH (20:00)
[2024-02-11 20:04] LABS: PH, VENOUS 7.382 (7.31-7.41)
[2024-02-11 20:06] LABS: BASOPHILS 4.5 % (0-2); EOSINOPHILS 0.7 % (0-6); HEMATOCRIT 49.4 % (35.0-50.0); HEMOGLOBIN 16.8 g/dL (12.0-18.0); LYMPHOCYTES 4.5 % (24-44); MCH 32.4 (27-36); MCV 95.4 fl (81-99); MONOCYTES 2.5 % (0-12); NEUTROPHILS 87.8 % (39-80); PLATELET COUNT 140 K/uL (140-440); RBC 5.18 M/ul (4.3-5.7)
[2024-02-11 20:29] LABS: ALBUMIN 3.5 g/dL (3.4-5.0); ALBUMIN/GLOBULIN RATIO 1.17 (1.1-2.4); ANION GAP 14.5 (7-21); BILIRUBIN, TOTAL 0.4 ng/dL (0.2-1.0); BUN/CREATININE RATIO 5.26 (6.0-28.6); CALCIUM 8.8 mg/dL (8.5-10.1); CREATININE, SERUM 0.57 mg/dL (0.70-1.30); POTASSIUM 4.5 mmol/L (3.5-5.1); PROTEIN, TOTAL 6.5 g/dL (6.4-8.2)
[2024-02-11 21:02] LABS: INFLUENZA B NAA NEGATIVE (NEGATIVE); RESPIRATORY SYNCYTIAL VIR NAA NEGATIVE (NEGATIVE)
[2024-02-11] MEDS ORDERED: CALCIUM CARBONATE 500 MG CHEW PO ONE (21:30)
[2024-02-11] MEDS ORDERED: ALBUTEROL SULFATE 0.5% 2.5 MG/0.5 ML VIAL INH ONE (21:30)
[2024-02-11] MEDS ORDERED: INHALER, ASSIST DEVICES 1 EACH SPACER MISC ONE (22:00)
[2024-02-11] MEDS ORDERED: ALBUTEROL SULFATE 8 GM HOME.PACK INH ONE (22:00)
[2024-02-11] MEDS ORDERED: AZITHROMYCIN 250 MG HOME.PACK PO ONE (22:00)
[2024-02-11] MEDS ORDERED: methylPREDNISolone 4 MG HOME.PACK PO ONE (22:00)
[2024-02-11] MEDS ORDERED: SODIUM CHLORIDE 0.9% 500 ML IV PRN (22:00)
[2024-02-11 22:33] VITALS: BP 109/72
[2024-02-12] MEDS ORDERED: IPRAT-ALBUT 0.5-3 ML INH (06:16)
== END 2024-02-11 22:33 | disposition home or self-care (01) ==
LOC: ED 19:47
PROVIDERS: Family Medicine
DX: J44.1 Chronic obstructive pulmonary disease with (acute) exacerbation (principal); F10.180 Alcohol abuse with alcohol-induced anxiety disorder; I10 Essential (primary) hypertension; F17.200 Nicotine dependence, unspecified, uncomplicated; Z79.52 Long term (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 steroids; Z79.899 Other long term (current) drug therapy
CPT/HCPCS: 36415; 70450; 71045; 80053; 82803; 83880; 85025; 87502; 94644; 96374; 99285-25; J2919; J7040; U0002

== ENCOUNTER 2024-05-11 09:27 | Day surgery (SDC) | payer MEDICARE, OTHER ==
[2024-05-05 11:16] VITALS: BP 147/96
[~2024-05-11] VITALS: Ht 190.5 cm; Wt 79.5 kg
[2024-05-11 09:04] VITALS: BP 134/80
[~2024-05-11 09:27] MED LIST changes: +AZITHROMYCIN250 MG PO; +CALCIUM 500 MG1 EAC5 PO; +COLACE100 MG PO; +DULOXETINE HCL20 MG PO; +HYDROXYZINE HCL25 MG; +IBLOOD GLUCOSE TEST STRIP 1 EA TEST VI PRN; +ITRACONAZOLE100 MG PO; +LACTATED RINGER'S 1,000 ML IV SCH; +LIDOCAINE HCL 1% 5 ML SDV INJ ONE; +ONE-A-DAY ESSE1 EACH PO; +PEG3350510 GM PO; +SERTRALINE HCL100 MG PO; +WELLBUTRIN SR150 MG PO
--- NOTE | 2024-05-11 11:01 | NUR ---
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 HE IS GETTING IRRITATED WITH WAITING. HE WILL ONLY WAIT FOR 20 MORE MINUTES, THEN HE WILL BE ASKING TO HAVE HIS "IV TAKEN OUT AND THEN I'M LEAVING."
[2024-05-11] MEDS ORDERED: propofoL 200 MG/20 ML VIAL ONE (11:18)
[2024-05-11] MEDS ORDERED: LIDOCAINE HCL 2% 5 ML SDV ONE (11:40)
--- NOTE | 2024-05-11 11:48 | NUR ---
05/11/24 1148 Sandee Simmons 1146-PATIENT ARRIVED TO PACU ON 3L NC RR EVEN. PATIENT REACTIVE TO VERBAL STIMULI SLIGHTLY OPENS EYES NOT FOLLOWING COMMANDS REMAINS VERY DROWSY AND DOZES BACK TO SLEEP. IVF INFUSING. SR HR 60'S.
[2024-05-11 12:13] VITALS: BP 152/90
--- NOTE | 2024-05-11 18:18 | OR ---
[facility] [address] [place], [place] [address] Signed DATE OF OPERATION: 05/11/2024 SURGEON: Joel Leung MD PREOPERATIVE DIAGNOSES: 1. Epigastric abdominal pain associated with nausea and vomiting. 2. Oropharyngeal dysphagia. POSTOPERATIVE DIAGNOSES: 1. Minimal punctate hemorrhagic distal gastritis. 2. Small hiatal hernia. 3. Minimal distal esophagitis. 4. GE junction at 40 cm. PROCEDURE: Esophagogastroduodenoscopy with CLOtest and biopsy of the antrum and distal esophagus. ESTIMATED BLOOD LOSS: None. INDICATIONS: Vasyl is a 64-year-old disabled gentleman asked to see me for upper endoscopy. He spoke of a colonoscopy in 2014 while living in [place]. I helped him with a colonoscopy in 2022. More recently, he has had trouble with epigastric abdominal pain with nausea, vomiting, and oropharynx heel dysphagia. He said he has cut down to about 15 cigarettes and/or cigars a day. He drinks around eight beers a day. He was so worried about have a small bowel obstruction that might be associated with his previous appendicitis. He had been asked to see me with respect to the above for upper endoscopy. We cannot see any where in his paperwork that he takes any medication for his stomach. He said it is worse when he is lying supine at night. I gave him a brochure on upper endoscopy. He understands the nature of the test. There is risk including, but not limited to gas bloating, crampy abdominal pain, bleeding, perforation requiring surgery, and missed diagnosis. We also reviewed the need for monitored anesthesia care given his advanced medical issues, his rather significant schizophrenia along with his very poor dentition and his daily use of alcohol and smoking with advanced COPD. He had expressed understanding, would like to proceed. He said his friend will be taking him home afterwards. DESCRIPTION OF PROCEDURE: Vasyl was taken into our endoscopy suite and placed in the supine semi-recumbent Electronically Signed By: JOEL LEUNG MD 05/11/24 1818 PATIENT NAME: VASYL KUMAR JR OPERATIVE REPORT DATE OF : 58 REPORT #: [id number] PHYSICIAN: JOEL LEUNG MD PCP: MAYURI SANABRIA PA-C REPORT IS CONFIDENTIAL AND NOT TO BE RELEASED WITHOUT AUTHORIZATION [facility] [address] [place], [place] [address] Signed position. He was given monitored anesthesia care, propofol infusion per our nurse appliance servicer. A bite block was utilized for the case along with some teeth guards for his rather poor dentition. The adult gastroscope was introduced and advanced out the third portion of the duodenum under direct visualization of camera without difficulty. The duodenum and pyloric channel were unremarkable. His stomach had mild diffuse punctate hemorrhagic gastritis. There were no ulcerations. We took a biopsy of the antrum for CLOtest as well as pathologic review. Upon retroflexion of scope he has just a small hiatal hernia. The scope was withdrawn up through the area of the GE junction, which was compliant without stricture. He has no gastric or esophageal varices. He had minimal disruption to the Z-line. No obvious Ware's mucosa. The Z-line measured 40 cm from his incisors. He did have a little streaky inflammation in the distal esophagus consistent with his mild distal esophagitis. We went ahead and took a biopsy of the distal esophagus for pathologic review. His middle and upper esophagus were unremarkable. After this, the gas was suctioned out. The gastroscope removed. Vasyl tolerated the procedure quite well. RECOMMENDATIONS: I will see Vasyl back in my office in 7 to 14 days to review his results. He would be advised to cut back on his smoking and drinking. He might benefit from a proton pump inhibitor or H2 kenzie per his primary care provider. Joel Leung MD ALB/MODL /[id number] cc: [facility] Joel Leung MD Copies: JOEL LEUNG MD ~ Electronically Signed By: JOEL LEUNG MD 05/11/24 1818 PATIENT NAME: VASYL KUMAR OPERATIVE REPORT DATE OF : 58 REPORT #: [id number] PHYSICIAN: JOEL LEUNG MD PCP: MAYURI SANABRIA PA-C REPORT IS CONFIDENTIAL AND NOT TO BE RELEASED WITHOUT AUTHORIZATION
--- NOTE | 2024-05-13 10:42 | PATH ---
[facility] [address] [place], [place] [address] Signed SPECIMEN(S): A ANTRUM BIOPSY SPECIMEN(S): B DISTAL ESOPHAGEAL BIOPSY SPECIMEN SOURCE: A. ANTRUM BIOPSY B. DISTAL ESOPHAGEAL BIOPSY CLINICAL HISTORY: Dysphagia; N+ V; abdominal pain/gastritis; distal esophagitis; small hiatal hernia. FINAL PATHOLOGIC DIAGNOSIS: A. Stomach, antrum, biopsy: - Gastric antral mucosa with no significant pathologic changes - Negative for Helicobacter pylori with HE stains B. Esophagus, distal, biopsy: - Esophageal squamous mucosa with no significant pathologic changes BRP MICROSCOPIC EXAMINATION: Histologic sections of all submitted blocks are examined by light microscopy. These findings, together with the gross examination, support the pathologic diagnosis. GROSS DESCRIPTION: A. The specimen, labeled and designated "Seeber, antrum biopsy," is received in formalin and consists of one hung soft tissue fragment, 0.3 cm. Entirely submitted in (A1). B. The specimen, labeled and designated "Seeber, distal esophagus biopsy," is received in formalin and consists of one hung soft tissue fragment, 0.1 cm. Entirely submitted in (B1). JS (under the direct supervision of a pathologist) The Gross Description was prepared using a voice recognition system. The report was reviewed for accuracy; however, sound-alike word errors, addition and/or deletions may occur. If there is any question about this report, please contact Client Services. ADDITIONAL NOTES: Immunohistochemical and/or in situ hybridization studies if performed in this case included appropriate positive controls that reacted as expected. This test was developed and its performance PATIENT NAME: MARIAH KUMAR JR PATHOLOGY DATE OF : 58 REPORT #: [id number] PHYSICIAN: DEEJAY PERRY PCP: MAYURI SANABRIA PA-C REPORT IS CONFIDENTIAL AND NOT TO BE RELEASED WITHOUT AUTHORIZATION [facility] [address] [place], [place] [address], [place] [address] Signed characteristics determined by [employer] It has not been cleared or approved by the U.S. Food and Drug Administration. The FDA has determined that such clearance or approval is not necessary. This test is used for clinical purposes. It should not be regarded as investigational or for research. [employer] is certified under the Clinical Laboratory Improvement Amendments of 1988 (CLIA) as qualified to perform high complexity clinical laboratory testing. PERFORMING LABORATORY: Technical component was performed by [employer] [address] [place] [address] (CLIA# [id number]). Professional interpretation was performed by [facility], [address] [place] [address] (CLIA#: [id number]). Diagnostician: Jose F Zaidi MD Pathologist Electronically Signed 05/13/2024 Copies: ~ PATIENT NAME: MARIAH KUMAR JR PATHOLOGY DATE OF : 58 REPORT #: [id number] PHYSICIAN: DEEJAY PATHOLOGY PCP: MAYURI SANABRIA PA-C REPORT IS CONFIDENTIAL AND NOT TO BE RELEASED WITHOUT AUTHORIZATION
== END 2024-05-11 12:28 | disposition home or self-care (01) ==
LOC: DS 09:27
PROVIDERS: ATTEND Colon & Rectal Surgery
PROC: 0DB68ZX Excision of Stomach, Via Natural or Artificial Opening Endoscopic, Diagnostic (ICD-10-PCS; 2024-05-11)
PROC: 0DB58ZX Excision of Esophagus, Via Natural or Artificial Opening Endoscopic, Diagnostic (ICD-10-PCS; principal; 2024-05-11 10:45)
DX: K29.71 Gastritis, unspecified, with bleeding (principal); K44.9 Diaphragmatic hernia without obstruction or gangrene; K20.90 Esophagitis, unspecified without bleeding; K59.09 Other constipation; J44.9 Chronic obstructive pulmonary disease, unspecified; I10 Essential (primary) hypertension; F20.0 Paranoid schizophrenia; F17.210 Nicotine dependence, cigarettes, uncomplicated; Z79.899 Other long term (current) drug therapy; Z88.6 Allergy status to analgesic agent; Z86.0101 Personal history of adenomatous and serrated colon polyps; Z90.49 Acquired absence of other specified parts of digestive tract
CPT/HCPCS: 00731; 36415; 87077; J2003; J2704; J7121

== ENCOUNTER 2024-10-05 09:15 | Emergency (ER) | payer MEDICARE, OTHER ==
[~2024-10-05] VITALS: Ht 190.5 cm; Wt 73.4 kg
[~2024-10-05 09:15] MED LIST changes: -IBLOOD GLUCOSE TEST STRIP 1 EA TEST VI PRN; -LACTATED RINGER'S 1,000 ML IV SCH; -LIDOCAINE HCL 1% 5 ML SDV INJ ONE
[2024-10-05] MEDS ORDERED: SODIUM CHLORIDE 0.9% 1,000 ML IV ONE (09:30)
[2024-10-05] MEDS ORDERED: KETOROLAC TROMETHAMINE 30 MG/ML VIAL IV ONE (09:30)
[2024-10-05] MEDS ORDERED: ondansetron HCL 4 MG/2 ML VIAL IV ONE ×2 (09:30→12:45)
[2024-10-05 09:39] LABS: BASOPHILS 0.4 % (0-2); EOSINOPHILS 0.4 % (0-6); HEMATOCRIT 45.4 % (35.0-50.0); HEMOGLOBIN 16.1 g/dL (12.0-18.0); LYMPHOCYTES 11.4 % (24-44); MCHC 35.5 g/dl (30-36); MONOCYTES 11.1 % (0-12); NEUTROPHILS 76.7 % (39-80); PLATELET COUNT 166 K/uL (140-440); RBC 5.05 M/ul (4.3-5.7)
[2024-10-05 09:57] LABS: ALBUMIN 3.1 g/dL (3.4-5.0); ALBUMIN/GLOBULIN RATIO 0.79 (1.1-2.4); ANION GAP 12.7 (7-21); BILIRUBIN, TOTAL 0.7 mg/dL (0.2-1.0); BUN/CREATININE RATIO 9.63 (6.0-28.6); CALCIUM 8.7 mg/dL (8.5-10.1); CREATININE, SERUM 0.83 mg/dL (0.70-1.30); POTASSIUM 3.7 mmol/L (3.5-5.1)
[2024-10-05 11:05] LABS: BILIRUBIN, URINE POSITIVE (negative); BLOOD/HGB, URINE NEGATIVE (Negative); KETONE, URINE TRACE (Negative); LEUK ESTERASE, URINE NEGATIVE (negative); NITRITE, URINE NEGATIVE (negative); PH, URINE 6.5 (5-7)
[2024-10-05] MEDS ORDERED: ALBUTEROL/IPRATROPIUM 3 ML NEB INH ONE (13:00)
[2024-10-05] MEDS ORDERED: HYDROmorphone HCL 1 MG/ML SYR IV PRN (13:00)
[2024-10-05 13:40] VITALS: BP 116/60
== END 2024-10-05 13:42 | disposition home or self-care (01) ==
LOC: ED 09:15
PROVIDERS: Emergency Medicine
DX: R10.11 Right upper quadrant pain (principal); I10 Essential (primary) hypertension; J45.909 Unspecified asthma, uncomplicated; F17.200 Nicotine dependence, unspecified, uncomplicated
CPT/HCPCS: 36415; 76705; 78226; 80053; 81003; 83690; 85025; 94640; 96374; 96375; 96376; 99284-25; A9537; J1171; J1885; J2405; J7030

== ENCOUNTER 2024-12-24 09:39 | Emergency (ER) | payer MEDICARE, OTHER ==
[~2024-12-24] VITALS: Ht 190.5 cm; Wt 76.2 kg
[2024-12-24 11:41] LABS: BASOPHILS 0.2 % (0.2-1.2); EOSINOPHILS 0.1 % (0.8-7.0); LYMPHOCYTES 5.5 % (21.8-53.1); MCH 30.6 PG (25.7-32.2); MCHC 33.9 g/dL (32.3-36.5); MCV 90.3 fL (79.0-92.2); MONOCYTES 9.5 % (5.3-12.2); NEUTROPHILS 84.1 % (34.0-67.9); RBC 4.84 M/uL (4.63-6.08)
[2024-12-24] MEDS ORDERED: ALBUTEROL/IPRATROPIUM 3 ML NEB INH ONE ×2 (11:45→16:15)
[2024-12-24 11:54] LABS: ALT (SGPT) 21.0 U/L (14-59); AST (SGOT) 12.0 U/L (15-37); GLOMERULAR FILTRATION RATE,EST 108.0 mL/min (>60); PROTEIN, TOTAL 7.3 g/dL (6.4-8.2); UREA NITROGEN 6.0 mg/dL (7-18)
[2024-12-24] MEDS ORDERED: HYDROmorphone HCL 1 MG/ML SYR IV ONE ×2 (12:15→14:15)
[2024-12-24] MEDS ORDERED: PIPERACILLIN/TAZOBACTAM 4.5 GM in SODIUM CHLORIDE 0.9% 100 ML IV ONE (14:30)
[2024-12-24] MEDS ORDERED: VANCOMYCIN HCL 2,000 MG in DEXTROSE 5% 500 ML IV ONE (15:00)
[2024-12-24 16:08] LABS: CORONAVIRUS COVID-19 AG NEGATIVE (NEGATIVE)
[2024-12-24 16:47] VITALS: BP 118/75
--- NOTE | 2024-12-24 22:37 | EKG ---
[facility] [address] [facility] [place] [address] Signed Normal sinus rhythm Normal ECG When compared with ECG of 05-MAY-2024 11:20, Nonspecific T wave abnormality no longer evident in Lateral leads Confirmed by Bridger Latif MD () on 12/24/2024 10:37:22 PM Electronically Signed By: BRIDGER LTAIF MD 12/24/24 2237 PATIENT NAME: MARIAH KUMAR Electrocardiogram DATE OF : 58 PHYSICIAN: BRIDGER LATIF MD REPORT #: [id number] REPORT IS CONFIDENTIAL AND NOT TO BE RELEASED WITHOUT AUTHORIZATION
== END 2024-12-24 16:43 | disposition short-term general hospital (02) ==
LOC: ED 09:39
PROVIDERS: Emergency Medicine
DX: J86.9 Pyothorax without fistula (principal); I10 Essential (primary) hypertension; J44.9 Chronic obstructive pulmonary disease, unspecified; F17.200 Nicotine dependence, unspecified, uncomplicated; Z79.51 Long term (current) use of inhaled steroids; Z79.899 Other long term (current) drug therapy; Z88.6 Allergy status to analgesic agent
CPT/HCPCS: 36415; 71045; 71260; 80053; 84484; 85025; 87040; 87449; 87899; 93005; 93010; 94640; 96365; 96375; 96376; 99285-25; J1171; J2405; J2543; J3370; J3373; J7060; Q9967

== ENCOUNTER 2025-02-21 08:44 | Emergency (ER) | payer MEDICARE, OTHER ==
[~2025-02-21] VITALS: Ht 190.5 cm; Wt 76.0 kg
[2025-02-21 09:01] LABS: BASOPHILS 1.2 % (0.2-1.2); EOSINOPHILS 1.2 % (0.8-7.0); LYMPHOCYTES 29.0 % (21.8-53.1); MCH 30.7 PG (25.7-32.2); MCHC 33.9 g/dL (32.3-36.5); MCV 90.8 fL (79.0-92.2); MONOCYTES 7.0 % (5.3-12.2); NEUTROPHILS 61.3 % (34.0-67.9); RBC 5.66 M/uL (4.63-6.08)
[2025-02-21] MEDS ORDERED: ATROVENT HFA12.9 GM INH (09:04)
[2025-02-21] MEDS ORDERED: KETOROLAC TROMETHAMINE 15 MG/ML VIAL IV ONE (09:15)
[2025-02-21] MEDS ORDERED: ALBUTEROL/IPRATROPIUM 3 ML NEB INH ONE (09:15)
[2025-02-21 09:29] LABS: ALT (SGPT) 24.0 U/L (14-59); AST (SGOT) 14.0 U/L (15-37); GLOMERULAR FILTRATION RATE,EST 95.0 mL/min (>60); PROTEIN, TOTAL 7.3 g/dL (6.4-8.2); UREA NITROGEN 5.0 mg/dL (7-18)
[2025-02-21] MEDS ORDERED: DOXYCYCLINE HYCLATE 100 MG CAP PO ONE (09:30)
[2025-02-21] MEDS ORDERED: DOXYCYCLINE HY100 MG PO (11:26)
[2025-02-21] MEDS ORDERED: AMOX TR-K CLV1 EAC1 PO (11:26)
[2025-02-21] MEDS ORDERED: PREDNISONE20 MG PO (11:26)
[2025-02-21] MEDS ORDERED: MAPAP500 MG PO (11:31)
[2025-02-21] MEDS ORDERED: HYDROCODON-ACE1 EA10 PO (11:31)
[2025-02-21 11:40] VITALS: BP 151/76
--- NOTE | 2025-02-21 22:17 | EKG ---
[facility] [address] [facility] [place] [address] Signed Sinus tachycardia Otherwise normal ECG When compared with ECG of 24-DEC-2024 11:57, T wave amplitude has increased in Inferior leads Confirmed by Bridger Latif MD () on 02/21/2025 10:16:54 PM Electronically Signed By: BRIDGER LATIF MD 02/21/25 2217 PATIENT NAME: MARIAH KUMAR Electrocardiogram DATE OF : 58 PHYSICIAN: BRIDGER LATIF MD REPORT #: [id number] REPORT IS CONFIDENTIAL AND NOT TO BE RELEASED WITHOUT AUTHORIZATION
== END 2025-02-21 11:40 | disposition home or self-care (01) ==
LOC: ED 08:44
PROVIDERS: Emergency Medicine
DX: J44.0 Chronic obstructive pulmonary disease with (acute) lower respiratory infection (principal); J18.0 Bronchopneumonia, unspecified organism; J43.9 Emphysema, unspecified; I10 Essential (primary) hypertension; F17.200 Nicotine dependence, unspecified, uncomplicated; Z88.6 Allergy status to analgesic agent; Z79.51 Long term (current) use of inhaled steroids; Z79.899 Other long term (current) drug therapy
CPT/HCPCS: 36415; 71045; 71260; 80053; 83735; 84484; 85025; 85379; 93005; 93010; 94640; 96365; 96375; 99284-25; 99406; J0696; J1885